=== PATIENT | male | born 1960 | race Caucasian/White ===

== ENCOUNTER 2017-05-22 19:34 | Emergency (ER) | payer OTHER ==
[2017-05-22 19:42] VITALS: TEMP 98.6
--- NOTE | 2017-05-22 19:56 | EDPHY ---
H & P Time Seen by Provider: 05/22/17 19:48 HPI/ROS: Chief complaint. Low back pain HPI. 56-year-old male presents emergency department with lobe right-sided back pain. It is also really flank pain. It radiates to the right groin and to the right testicle. Penis and testicles otherwise are normal. Slight urinary urgency. No fever. Some nausea but no vomiting. Patient cannot find a comfortable position and he is more comfortable pacing. He does have a history of low back pain and this feels differently. He has not had a previous kidney stone. ROS Constitutional. no fever/chills, no weakness Eyes. no problems with vision ENT. no sore throat, no nasal drainage Cardiovascular. no chest pain Respiratory. no shortness of breath, no cough Abdominal. Right flank pain with nausea . Some urinary urgency MS. no calf pain/swelling, no neck/back pain, no joint pain Skin. no rash Lymph. no swollen glands Neuro. no headache, no dizziness, no difficulty walking or with speech Past Medical/Surgical History: Past medical history significant for hypertension glaucoma Social History: , nonsmoker, no alcohol Smoking Status: Never smoked Physical Exam: General Appearance: Alert well-developed male moderate distress. Vital signs are stable Eyes: Pupils equal and round no pallor or injection. ENT, Mouth: Mucous membranes are moist. Respiratory: There are no retractions, lungs are clear to auscultation. Cardiovascular: Regular rate and rhythm. Gastrointestinal: Abdomen is soft and nontender, no masses, bowel sounds normal. Patient shows me right flank pain but it is not tender to palpation. Penis and testicles are not Neurological: Awake and alert, sensory and motor exams grossly normal. Skin: Warm and dry, no rashes. Musculoskeletal: Neck is supple nontender. Extremities symmetrical, full range of motion. Psychiatric: Patient is oriented X 3, there is no agitation. Constitutional: Initial Vital Signs Temperature (C) 37 C 05/22/17 19:38 Heart Rate 80 05/22/17 19:38 Respiratory Rate 18 05/22/17 19:38 Blood Pressure 172/98 H 05/22/17 19:38 O2 Sat (%) 98 05/22/17 19:38 O2 Delivery Mode Room Air Allergies/Adverse Reactions: No Known Allergies Allergy (Unverified 05/25/09 10:28) Home Medications: Medication Instructions Recorded Lisinopril 05/22/14 Brimonidine 0.15% 05/22/17 Dorzolamide HCl/Timolol Maleat 05/22/17 Latanoprost 05/22/17 Ondansetron Odt [Zofran Odt] 4 mg PO Q4PRN PRN #4 tab 05/22/17 Tamsulosin HCl [Flomax] 0.4 mg PO DAILY8 #4 cap 05/22/17 oxyCODONE/APAP 5/325 [Percocet 1 tab PO Q4-6PRN PRN #14 tab 05/22/17 5/325] Medical Decision Making - Diagnostics Imaging Results: Imaging Impressions Abdomen/Pelvis CT 05/22/17 20:20 Impression: 1. 4.2 mm distal right ureteral calculus with associated moderate hydronephrosis. 2. Cholelithiasis. Results called to Dr. Montoya at 9:00 PM. Attention: This CT examination is specifically designed to evaluate patients who are clinically suspected of having acute obstructive uropathy. This examination does not use radiographic contrast, and as such, provides only a limited evaluation of the abdomen, pelvis and retroperitoneum. If there is further clinical suspicion for pathological conditions other than obstructive uropathy, a complete CT evaluation of the abdomen and pelvis utilizing intravenous, oral, and rectal contrast should be considered. CT abdomen pelvis without contrast reviewed by me and discussed with Dr. Alvarez shows a 4 mm distal right ureteral calculus with moderate hydronephrosis. There is also associated gallstones Procedures: IV normal saline. Toradol and Zofran IV ED Course/Re-evaluation: On re-evaluation at 9:20 p.m. patient is stable. The patient and I discussed imaging and lab results. We discussed treatment plan including criteria for return importance of follow-up and further evaluation. He expresses understanding and agreement Differential Diagnosis: I considered urinary tract infection, pyelonephritis, muscular low back pain, kidney stone - Data Points Laboratory Results: Laboratory Results 05/22/17 20:35 05/22/17 20:35 05/22/17 05/22/17 05/22/17 20:35 20:35 20:20 WBC 9.64 10^3/uL H 10^3/uL (3.80-9.50) RBC 4.52 10^6/uL 10^6/uL (4.40-6.38) Hgb 16.2 g/dL g/dL (13.7-17.5) Hct 45.0 % % (40.0-51.0) MCV 99.6 fL fL (81.5-99.8) MCH 35.8 pg H pg (27.9-34.1) MCHC 36.0 g/dL g/dL (32.4-36.7) RDW 12.2 % % (11.5-15.2) Plt Count 222 10^3/uL 10^3/uL (150-400) MPV 11.7 fL fL (8.7-11.7) Neut % (Auto) 76.0 % H % (39.3-74.2) Lymph % (Auto) 13.5 % L % (15.0-45.0) [place] % (Auto) 9.2 % % (4.5-13.0) Eos % (Auto) 0.6 % % (0.6-7.6) Baso % (Auto) 0.4 % % (0.3-1.7) Nucleat RBC Rel Count 0.0 % % (0.0-0.2) Absolute Neuts (auto) 7.32 10^3/uL H 10^3/uL (1.70-6.50) Absolute Lymphs (auto) 1.30 10^3/uL 10^3/uL (1.00-3.00) Absolute Monos (auto) 0.89 10^3/uL H 10^3/uL (0.30-0.80) Absolute Eos (auto) 0.06 10^3/uL 10^3/uL (0.03-0.40) Absolute Basos (auto) 0.04 10^3/uL 10^3/uL (0.02-0.10) Absolute Nucleated RBC 0.00 10^3/uL 10^3/uL (0-0.01) Immature Gran % 0.3 % % (0.0-1.1) Immature Gran # 0.03 10^3/uL 10^3/uL (0.00-0.10) Sodium 145 mEq/L H mEq/L (134-144) Potassium 3.6 mEq/L mEq/L (3.5-5.2) Chloride 107 mEq/L mEq/L (97-110) Carbon Dioxide 24 mEq/l mEq/l (22-31) Anion Gap 14 mEq/L mEq/L (8-16) BUN 18 mg/dL mg/dL (7-23) Creatinine 1.0 mg/dL mg/dL (0.7-1.3) Estimated GFR > 60 Glucose 105 mg/dL H mg/dL (70-100) Calcium 10.6 mg/dL H mg/dL (8.5-10.4) Urine Color YELLOW Urine Appearance CLEAR Urine pH 5.0 (5.0-7.5) Ur Specific [place] 1.016 (1.002-1.030) Urine Protein NEGATIVE (NEGATIVE) Urine Ketones NEGATIVE (NEGATIVE) Urine Blood 1+ H (NEGATIVE) Urine Nitrate NEGATIVE (NEGATIVE) Urine Bilirubin NEGATIVE (NEGATIVE) Urine Urobilinogen NEGATIVE EU EU (0.2-1.0) Ur Leukocyte Esterase NEGATIVE (NEGATIVE) Urine RBC 15-25 /hpf H /hpf (0-3) Urine WBC 1-3 /hpf /hpf (0-3) Ur Epithelial Cells NONE SEEN /lpf /lpf (NONE-1+) Urine Mucus TRACE /lpf /lpf (NONE-1+) Urine Glucose NEGATIVE (NEGATIVE) Medications Given: Discontinued Medications Sodium Chloride (Ns) 1,000 mls @ 0 mls/hr IV EDNOW ONE; Wide Open PRN Reason: Protocol Stop: 05/22/17 20:20 Last Admin: 05/22/17 20:31 Dose: 1,000 mls Sodium Chloride (Ns) 1,000 mls @ 0 mls/hr IV EDNOW ONE; Wide Open PRN Reason: Protocol Stop: 05/22/17 20:20 Last Admin: 05/22/17 20:31 Dose: 1,000 mls Ketorolac Tromethamine (Toradol) 30 mg IVP EDNOW ONE Stop: 05/22/17 20:20 Last Admin: 05/22/17 20:31 Dose: 30 mg Ondansetron HCl (Zofran) 4 mg IVP EDNOW ONE Stop: 05/22/17 20:20 Last Admin: 05/22/17 20:31 Dose: 4 mg Departure - Departure Disposition: Home, Routine, Self-Care Clinical Impression: Calculus of right kidney Condition: Good Instructions: Renal Colic (ED), Kidney Stones (ED) Additional Instructions: Drink plenty of fluids and stay hydrated. Strain all urine next 24-48 hours and save stone for your physician. Ibuprofen 600 mg every 6 hr. Percocet in addition if necessary for pain. Zofran if needed for nausea and vomiting. Return for worsening symptoms. Recheck in 2 days if not improved Referrals: Fermin Kaplan DO [Primary Care Provider] - As per Instructions Nathaniel Prince MD [Medical Doctor] - 2-3 days, if not improved Prescriptions: Ondansetron Odt [Zofran Odt] 4 mg PO Q4PRN PRN #4 tab PRN Reason: Nausea/Vomiting, Use 1st oxyCODONE/APAP 5/325 [Percocet 5/325] 1 tab PO Q4-6PRN PRN #14 tab PRN Reason: Pain, Moderate Tamsulosin HCl [Flomax] 0.4 mg PO DAILY8 #4 cap
[2017-05-22] MEDS ORDERED: ONDANSETRON 4 MG/2 ML VIAL IVP ONE (20:19)
[2017-05-22] MEDS ORDERED: NS 1,000 ML IV ONE ×2 (20:19)
[2017-05-22] MEDS ORDERED: KETOROLAC 30 MG/1 ML SDV IVP ONE (20:19)
[2017-05-22 20:46] LABS: PLATELET COUNT 222 10^3/uL (150-400)
[2017-05-22] MEDS ORDERED: OXYCODONE/APAP 5/325MG PREPACK#4 BTL TAKEHOME ONE (21:30)
[2017-05-22] MEDS ORDERED: ONDANSETRON 4MG PREPACK#2 BTL TAKEHOME ONE (21:30)
[2017-05-22 22:14] VITALS: BP 156/99; PULSE 89; RESP 16; O2SAT 94
--- NOTE | 2017-05-23 10:41 | ASMTCMCOM ---
CM Note CM Note Notes: Received call from Ronda at [facility][id number] on behalf of patient who states he did not receive his prescription for Flomax that he received in the ER on 05/22/17. Chart reviewed, intended prescription: Flomax 0.4 mg #4 per noted. Patient contacted and prescription called to patient's requested pharmacy: [facility] Date Signed: 05/23/2017 10:41 AM Electronically Signed By:Maria Elena Thomas RN
== END 2017-05-22 22:14 | disposition home or self-care (01) ==
DX: N20.0 Calculus of kidney (principal); I10 Essential (primary) hypertension; E86.9 Volume depletion, unspecified
CPT/HCPCS: 96374; J1885; J2405